=== PATIENT | female | born 1975 | race Caucasian/White ===

== ENCOUNTER 2018-04-19 18:23 | Emergency (ER) | payer MEDICARE, MEDICAID ==
[~2018-04-19] VITALS: Ht 165.1 cm; Wt 68.0 kg
[~2018-04-19 18:23] MED LIST: AGM875T PO; ALBU17AE23 IH; ASP81TEC PO; ATOR10TA PO; BENZ200C25 PO; CEFD300C3 PO; CHLS4PK GT; CLCX200C PO; CYCL10TA9 PO; DEXL60CA5 PO; EZET10TA5 PO; FLT05NA16 NSEACH; KETO-22 PO; LEVO500T69 PO; METH4TAB PO; MTX2.5T PO; OXYC-471; PRD20T PO; RT-ALBUINH; SMV20T PO; THYR90TA; TRAM50TA2 PO; [UNRECOGNIZED DRUG - CODE] PO
[2018-04-19 18:42] VITALS: BP 112/85
[2018-04-19] MEDS ORDERED: PRD20T PO (18:54)
[2018-04-19] MEDS ORDERED: OXYC1TAB87 PO (18:54)
--- NOTE | 2018-04-19 18:54 | ED Upper Extremity ---
General Chief Complaint: Upper Extremity Stated Complaint: R SHOULDER BLADE PAIN Nursing Triage Note: pt presents to ed with complaints of r shoulder pain x 1 week. reports pain radiates down r arm. Pt states about a month ago she fell and over stretched that arm trying to hold onto railing. Nursing Sepsis Screen: No Definite Risk Source: patient Exam Limitations: no limitations History of Present Illness Date Seen by Provider: Apr 19, 2018 Time Seen by Provider: 18:51 Initial Comments To ER with pain around the scapula on the right side times one week. Radiates down the arm all the way to the fingers. She states that in March 2017 she fell. She then had a recurrence of pain in August and recurrence of pain one week ago. She cannot recall any recent precipitating injury such as another fall. Onset: last week Severity: moderate Pain/Injury Location: right shoulder Method of Injury: fell Modifying Factors: Worse With Movement Allergies and Home Medications Allergies Coded Allergies: Hydrocodone (Unverified Allergy, Mild, 08/03/08) morphine (Unverified Allergy, Mild, 08/03/08) Home Medications Aspirin 81 Mg Tabec, 81 MG PO DAILY, (Reported) Atorvastatin Calcium 10 Mg Tablet, 20 MG PO DAILY, (Reported) Cefdinir 300 Mg Capsule, 300 MG PO BID Prescribed by: KAPIL DOMINGO on 11/23/15826 Celecoxib 200 Mg Capsule, 1 EACH PO BID, (Reported) Dexlansoprazole 60 Mg , 60 MG PO DAILY, (Reported) Methotrexate 2.5 Mg Tab, 1 EACH PO WEEK, (Reported) Prednisone 20 Mg Tab, 40 MG PO DAILY Prescribed by: KAPIL DOMINGO on 11/23/15826 Patient Home Medication List Home Medication List Reviewed: Yes Review of Systems Constitutional: see HPI EENTM: see HPI Respiratory: no symptoms reported Cardiovascular: no symptoms reported Genitourinary: no symptoms reported Musculoskeletal: see HPI Skin: no symptoms reported Psychiatric/Neurological: No Symptoms Reported Past Jskafet-Nyxajc-Pidtqz Hx Patient Social History Alcohol Use: Denies Use Recreational Drug Use: No Smoking Status: Current Everyday Smoker Type Used: Cigarettes Recent Foreign Travel: No Contact w/Someone Who Travel: No Recent Infectious Disease Expo: No Recent Hopitalizations: No Physical Abuse: No Sexual Abuse: No Mistreated: No Fear: No Seasonal Allergies Seasonal Allergies: Yes Past Medical History Surgeries: Yes Appendectomy, Breast, Gallbladder, Hysterectomy, Oophorectomy, Tonsillectomy Respiratory: No ("RA" IN LUNGS) Cardiac: Yes High Cholesterol Neurological: No Reproductive Disorders: No 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 oz. 68.950751ac; BMI Method:Stated General Appearance: WD/WN, no apparent distress HEENT: PERRL/EOMI, normal ENT inspection Neck: non-tender, full range of motion Respiratory: no respiratory distress, no accessory muscle use Shoulder: normal inspection, soft tissue tenderness (periscapular tenderness to palpation but no ecchymosis or rash) Elbow/Forearm: normal inspection, non-tender Wrist: Yes normal inspection, Yes non-tender Hand: normal inspection, non-tender Neurologic/Psychiatric: alert, normal mood/affect, oriented x 3 Skin: normal color, warm/dry Progress/Results/Core Measures Results/Orders Vital Signs/I&O 04/19/18 18:42 Temp 98.8 Pulse 95 Resp 20 B/P (MAP) 112/85 (94) Pulse Ox 99 Blood Pressure Mean: 94 Departure Impression Primary Impression: Shoulder pain Qualified Codes: M25.511 - Pain in right shoulder Disposition: 01 HOME, SELF-CARE Condition: Stable Departure-Patient Inst. Decision time for Depature: 18:52 Referrals: GAUTAM SAAVEDRA MD (PCP/Family) Primary Care Physician Patient Instructions: Shoulder Pain (DC) Add. Discharge Instructions: 1. Follow-up with Dr. Saavedra next week to discuss imaging studies to further evaluate the cause of your pain such as perhaps an MRI of the shoulder or the neck. In the meantime pain medication as directed. Return to ER for any concerns. All discharge instructions reviewed with patient and/or family. Voiced understanding. Scripts Oxycodone HCl/Acetaminophen (Percocet 5-325 mg Tablet) 1 Each Tablet 1 TAB PO Q4H for PAIN-MODERATE MDD 6, #14 TAB Do not fill unless prednisone is also filled Prov: TAYA CHENEY APRN 04/19/18 Prednisone (Prednisone) 20 Mg Tab 40 MG PO DAILY, #8 TAB Prov: TAYA CHENEY APRN 04/19/18 TAYA CHENEY APRN Apr 19, 2018 18:54
[2018-04-19] MEDS ORDERED: KETOROLAC 60 MG/2 ML VIAL IM ONE (19:00)
[2018-04-19] MEDS ORDERED: ORPHENADRINE 60 MG/2 ML (NORFLEX) AMP IM ONE (19:00)
--- OUTSIDE RECORDS SUMMARY | 2018-04-19 19:16 | XMS REPORT | Continuity of Care Document ---
Author Author [facility] Organization [facility] Address Unknown Phone Unavailable Allergies Active Description Code Type Severity Reaction Onset Reported/Identified Relationship to Patient Clinical Status Yes hydrocodone [id number] Drug Allergy Mild N/A 08/03/2008 Yes morphine [id number] Drug Allergy Mild N/A 08/03/2008 Medications There is no data. Problems Date Dx Coded Attending Type Code Diagnosis Diagnosed By 01/30/2011 Ot 784.0 01/30/2011 Ot 786.50 01/30/2011 Ot 786.52 02/19/2014 JAMES CAVAZOS MD Ot 724.2 02/19/2014 JAMES CAVAZOS MD Ot 782.0 06/17/2014 Ot 244.9 06/17/2014 Ot 272.4 08/31/2014 Ot 244.9 08/31/2014 Ot 272.4 02/17/2015 QUENTIN OQUENDO, GAUTAM R Ot E78.5 02/17/2015 QUENTIN OQUENDO, GAUTAM R Ot J45.909 02/17/2015 QUENTIN OQUENDO, GAUTAM R Ot K21.9 02/17/2015 QUENTIN OQUENDO, GAUTAM R Ot M06.9 02/28/2015 QUENTIN OQUENDO, GAUTAM R Ot E78.5 02/28/2015 QUENTIN OQUENDO, GAUTAM R Ot J45.909 02/28/2015 QUENTIN OQUENDO, GAUTAM R Ot K21.9 02/28/2015 QUENTIN OQUENDO, GAUTAM R Ot M06.9 03/29/2015 QUENTIN OQUENDO, GAUTAM R Ot S39.92XA 03/29/2015 QUENTIN OQUENDO, GAUTAM R Ot W19.XXXA 03/29/2015 QUENTIN OQUENDO, GAUTAM R Ot Y99.8 11/23/2015 Ot F17.210 NICOTINE DEPENDENCE, CIGARETTES, UNCOMPL 11/23/2015 Ot J01.90 ACUTE SINUSITIS, UNSPECIFIED 11/23/2015 Ot J02.9 ACUTE PHARYNGITIS, UNSPECIFIED 11/23/2015 Ot M06.9 RHEUMATOID ARTHRITIS, UNSPECIFIED 11/23/2015 Ot Z79.82 PRISON ( CURRENT) USE OF ASPIRIN 11/23/2015 Ot Z79.899 OTHER PRISON (CURRENT) DRUG THERAPY 11/25/2015 Ot F17.210 NICOTINE DEPENDENCE, CIGARETTES, UNCOMPL 11/25/2015 Ot J01.90 ACUTE SINUSITIS, UNSPECIFIED 11/25/2015 Ot J02.9 ACUTE PHARYNGITIS, UNSPECIFIED 11/25/2015 Ot M06.9 RHEUMATOID ARTHRITIS, UNSPECIFIED 11/25/2015 Ot Z79.82 PRISON ( CURRENT) USE OF ASPIRIN 11/25/2015 Ot 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 Results There is no data. Encounters ACCT No. Visit Date/Time Discharge Status Pt. Type Provider Facility Loc./Unit Complaint [id number] 03/07/2015 10:14:00 03/07/2015 23:59:59 CLS Outpatient GAUTAM SAAVEDRA MD [facility] RAD [id number] 01/28/2015 09:26:00 01/28/2015 23:59:59 CLS Outpatient GAUTAM SAAVEDRA MD [facility] LAB [id number] 02/19/2014 13:32:00 02/19/2014 16:12:00 DIS Emergency JAMES CAVAZOS MD [facility] ER [id number] 10/28/2013 15:09:00 10/28/2013 23:59:59 CLS Outpatient [id number] 05/21/2013 11:59:00 08/19/2013 00:01:00 DIS Outpatient [id number] 07/02/2013 11:07:00 07/02/2013 23:59:59 CLS Outpatient [id number] 06/23/2013 09:51:00 06/23/2013 11:52:00 DIS Emergency [id number] 06/17/2013 13:02:00 06/17/2013 23:59:59 CLS Outpatient [id number] 05/21/2013 13:51:00 05/21/2013 23:59:59 CLS Outpatient [id number] 05/02/2013 11:33:00 05/02/2013 14:27:00 DIS Emergency [id number] 03/04/2013 09:19:00 03/04/2013 23:59:59 CLS Outpatient [id number] 01/29/2013 14:36:00 01/29/2013 23:59:59 CLS Outpatient [id number] 01/26/2013 09:41:00 01/26/2013 13:00:00 DIS Emergency [id number] 12/30/2012 11:27:00 12/30/2012 23:59:59 CLS Outpatient [id number] 12/16/2012 10:08:00 12/16/2012 23:59:59 CLS Outpatient [id number] 12/12/2012 12:32:00 12/12/2012 13:48:00 DIS Emergency [id number] 11/23/2015 08:06:00 Document Registration [id number] 05/25/2014 08:36:00 Document Registration [id number] 01/30/2011 10:44:00 Document Registration
== END 2018-04-19 19:33 | disposition home or self-care (01) ==
LOC: ER 18:23 → EDUNIT# 18:23 → ER 19:33
DX: M25.511 Pain in right shoulder (principal); E78.00 Pure hypercholesterolemia, unspecified; M06.9 Rheumatoid arthritis, unspecified; F17.210 Nicotine dependence, cigarettes, uncomplicated; Z90.49 Acquired absence of other specified parts of digestive tract; Z90.710 Acquired absence of both cervix and uterus; Z90.89 Acquired absence of other organs; Z98.890 Other specified postprocedural states; Z88.5 Allergy status to narcotic agent; Z79.82 Long term (current) use of aspirin; Z95.2 Presence of prosthetic heart valve
CPT/HCPCS: 99282

== ENCOUNTER → 2018-05-26 | Outpatient (CLI) | payer MEDICARE, MEDICAID ==
[~2018-05-26] MED LIST changes: +OXYC1TAB87 PO
[2018-05-26 10:40] LABS: BASOPHILS % (AUTO) 0 % (0-10); EOSINOPHILS # (AUTO) 0.1 10^3/uL (0.0-0.3); EOSINOPHILS % (AUTO) 2 % (0-10); HEMATOCRIT 47 % (35-52); HEMOGLOBIN 15.1 G/DL (11.5-16.0); LYMPHOCYTES # (AUTO) 1.2 X 10^3 (1.0-4.0); LYMPHOCYTES % (AUTO) 15 % (12-44); MEAN CORPUSCULAR HEMOGLOBIN 30 PG (25-34); MEAN CORPUSCULAR HGB CONC 33 G/DL (32-36); MEAN CORPUSCULAR VOLUME 91 FL (80-99); MEAN PLATELET VOLUME 10.1 FL (7.4-10.4); MONOCYTES # (AUTO) 0.6 X 10^3 (0.0-1.0); MONOCYTES % (AUTO) 7 % (0-12); NEUTROPHILS # (AUTO) 6.3 X 10^3 (1.8-7.8); NEUTROPHILS % (AUTO) 76 % (42-75); PLATELET COUNT 200 10^3/uL (130-400); RED CELL DISTRIBUTION WIDTH 14.2 % (10.0-14.5); WHITE BLOOD COUNT 8.2 10^3/uL (4.3-11.0)
[2018-05-26 11:07] LABS: ALANINE AMINOTRANSFERASE 11 U/L (0-55); ALBUMIN 4.1 GM/DL (3.2-4.5); ALKALINE PHOSPHATASE 110 U/L (40-136); BILIRUBIN,TOTAL 0.3 MG/DL (0.1-1.0); BUN/CREATININE RATIO 14; CALCIUM 9.3 MG/DL (8.5-10.1); CARBON DIOXIDE 27 MMOL/L (21-32); CHLORIDE 105 MMOL/L (98-107); CHOLESTEROL 181 MG/DL (< 200); CREATININE SERUM 0.77 MG/DL (0.60-1.30); GFR ESTIMATED > 60; GLUCOSE 84 MG/DL (70-105); HDL CHOLESTEROL 47 MG/DL (40-60); POTASSIUM 4.2 MMOL/L (3.6-5.0); SODIUM 142 MMOL/L (135-145); TOTAL PROTEIN 6.5 GM/DL (6.4-8.2); TRIGLYCERIDES 144 MG/DL (<150); VLDL CHOLESTEROL 29 MG/DL (5-40)
--- NOTE | 2018-05-26 19:01 | Diagnostic Imaging Report ---
INDICATION: Loss of range of motion and right shoulder pain. TIME OF EXAMINATION: 10:21 AM. FINDINGS: Two views of the right shoulder demonstrate normal glenohumeral and acromioclavicular alignment. The acromiohumeral space is normal. No fracture or dislocation is seen. IMPRESSION: No acute bony abnormality is detected. Dictated by: Dictated on workstation # [id number]
== END ==
LOC: RAD 10:06
PROVIDERS: ATTEND Family Medicine
DX: G89.29 Other chronic pain (principal); M25.511 Pain in right shoulder; E03.9 Hypothyroidism, unspecified; E78.5 Hyperlipidemia, unspecified
CPT/HCPCS: 36415; 73030; 80053; 80061; 82672; 84443; 85025

== ENCOUNTER → 2018-06-03 | Outpatient (CLI) | payer MEDICARE, MEDICAID ==
--- NOTE | 2018-06-03 18:50 | Diagnostic Imaging Report ---
INDICATION: Routine screening. COMPARISON is made with prior mammogram from 11/09/2008 and 03/20/2007. 2-D and 3-D bilateral screening mammography was performed with CAD. FINDINGS: Scattered fibronodular densities are identified bilaterally. The right breast is unremarkable. There is a nodular density in the central left breast at the nipple line approximately 4 cm from the nipple. Additional views are recommended. No other mass is seen. No suspicious microcalcifications are identified. Axillae are unremarkable. IMPRESSION: BI-RADS 0. Nodular density in the central left retroareolar breast. Further evaluation with additional views and ultrasound are recommended. ACR BI-RADS Category 0: Incomplete. (Needs additional imaging evaluation). Result letter will be mailed to the patient. Note: At least 10% of breast cancer is not imaged by mammography. Dictated by: Dictated on workstation # [id number]
== END ==
LOC: RAD 09:06
PROVIDERS: ATTEND Family Medicine
DX: Z12.31 Encounter for screening mammogram for malignant neoplasm of breast (principal); R92.8 Other abnormal and inconclusive findings on diagnostic imaging of breast
CPT/HCPCS: 77067

== ENCOUNTER 2018-07-06 20:07 | Emergency (ER) | payer MEDICARE, MEDICAID ==
[~2018-07-06] VITALS: Ht 165.1 cm; Wt 68.0 kg
[2018-07-06 22:03] LABS: BASOPHILS % (AUTO) 1 % (0-10); EOSINOPHILS # (AUTO) 0.2 10^3/uL (0.0-0.3); EOSINOPHILS % (AUTO) 3 % (0-10); HEMATOCRIT 45 % (35-52); HEMOGLOBIN 14.9 G/DL (11.5-16.0); LYMPHOCYTES % (AUTO) 30 % (12-44); MEAN CORPUSCULAR HEMOGLOBIN 30 PG (25-34); MEAN CORPUSCULAR HGB CONC 33 G/DL (32-36); MEAN CORPUSCULAR VOLUME 92 FL (80-99); MEAN PLATELET VOLUME 10.9 FL (7.4-10.4); MONOCYTES # (AUTO) 0.7 X 10^3 (0.0-1.0); MONOCYTES % (AUTO) 10 % (0-12); NEUTROPHILS # (AUTO) 3.7 X 10^3 (1.8-7.8); NEUTROPHILS % (AUTO) 56 % (42-75); PLATELET COUNT 235 10^3/uL (130-400); RED CELL DISTRIBUTION WIDTH 14.6 % (10.0-14.5); WHITE BLOOD COUNT 6.6 10^3/uL (4.3-11.0)
[2018-07-06 22:03] LABS: BILIRUBIN,URINE NEGATIVE (NEGATIVE); CLARITY,URINE SLIGHTLY CLOUDY; COLOR,URINE YELLOW; GLUCOSE, URINE (UA) NEGATIVE (NEGATIVE); KETONES,URINE NEGATIVE (NEGATIVE); LEUKOCYTE ESTERASE ,URINE 1+ (NEGATIVE); NITRITE,URINE NEGATIVE (NEGATIVE); PH,URINE 6 (5-9); PROTEIN,URINE NEGATIVE (NEGATIVE); UROBILINOGEN,URINE NORMAL (NORMAL)
[2018-07-06 22:10] LABS: BACTERIA,URINE TRACE /HPF; WBC,URINE 0-2 /HPF; YEAST,URINE FEW /HPF
[2018-07-06] MEDS ORDERED: NS IV 1000 ML 1,000 ML IV STA (22:10)
[2018-07-06] MEDS ORDERED: KETOROLAC 30 MG/ML VIAL IVP STA (22:10)
[2018-07-06 22:16] LABS: ALANINE AMINOTRANSFERASE 17 U/L (0-55); ALBUMIN 4.1 GM/DL (3.2-4.5); ALKALINE PHOSPHATASE 119 U/L (40-136); BILIRUBIN,TOTAL 0.2 MG/DL (0.1-1.0); BUN/CREATININE RATIO 16; CALCIUM 9.3 MG/DL (8.5-10.1); CARBON DIOXIDE 23 MMOL/L (21-32); CHLORIDE 107 MMOL/L (98-107); CREATININE SERUM 0.77 MG/DL (0.60-1.30); GFR ESTIMATED > 60; GLUCOSE 91 MG/DL (70-105); LIPASE 53 U/L (8-78); POTASSIUM 3.6 MMOL/L (3.6-5.0); SODIUM 143 MMOL/L (135-145); TOTAL PROTEIN 6.6 GM/DL (6.4-8.2)
[2018-07-06] MEDS ORDERED: fentaNYL INJECTION 100 MCG/2 ML AMP IVP STA (22:26)
[2018-07-06] MEDS ORDERED: FAMOTIDINE 20MG/2ML IV (PEPCID) IV STA (22:26)
--- NOTE | 2018-07-06 22:49 | ED Abdominal Pain ---
General Chief Complaint: Abdominal/GI Problems Stated Complaint: ABD PAIN Nursing Triage Note: PT AMB TO ROOM #6 GARDING ABD. A&OX4. C/O UPPER RT ABD DISCOMFORT AND BLOATING. 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 DENIES NAUSEA OR VOMITING. DENIES FEVER OR CHILLS. Sepsis Screen: No Definite Risk Source of Information: Patient Exam Limitations: No Limitations History of Present Illness Date Seen by Provider: Jul 06, 2018 Time Seen by Provider: 22:10 Initial Comments Here with report of acute onset of right upper quadrant abdominal pain that occurred at about 7 PM tonight when she lit a cigarette. She had eaten at 5 PM and was done about 5:15 or so. Doesn't normally have problems after eating. She had her gallbladder removed in 1996. 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 Tonight reports the pain as an ache and worse with movement. She was concerned about gallbladder problems. No fever or chills. No vomiting or diarrhea. Had similar episode in March and had CT scan at that time at outside facility. She reports the CT scan did not show any concerning findings. Does have history of rheumatoid arthritis and is on methotrexate. Timing/Duration: 1-3 Hours Severity/Quality: Moderate Location: RUQ Radiation: No Radiation Modifying Factors: Improves With Resting Associated Symptoms: No Back Pain, No Chest Pain, No Fever/Chills, No Nausea/ Vomiting; Shortness of Air; No Weakness Allergies and Home Medications Allergies Coded Allergies: Hydrocodone (Unverified Allergy, Mild, 08/03/08) morphine (Unverified Allergy, Mild, 08/03/08) Home Medications Aspirin 81 Mg Tabec, 81 MG PO DAILY, (Reported) Atorvastatin Calcium 10 Mg Tablet, 20 MG PO DAILY, (Reported) Cefdinir 300 Mg Capsule, 300 MG PO BID Prescribed by: KAPIL DOMINGO on 11/23/15 0815 Celecoxib 200 Mg Capsule, 1 EACH PO BID, (Reported) Dexlansoprazole 60 Mg , 60 MG PO DAILY, (Reported) Methotrexate 2.5 Mg Tab, 1 EACH PO WEEK, (Reported) Oxycodone HCl/Acetaminophen 1 Each Tablet, 1 TAB PO Q4H Do not fill unless prednisone is also filled Prescribed by: TAYA CHENEY on 04/19/181853 Prednisone 20 Mg Tab, 40 MG PO DAILY Prescribed by: KAPIL DOMINGO on 11/23/15 0827 Prednisone 20 Mg Tab, 40 MG PO DAILY Prescribed by: TAYA CHENEY on 04/19/181853 Patient Home Medication List Home Medication List Reviewed: Yes Review of Systems Review of Systems Constitutional: see HPI; No chills, No fever EENTM: No Symptoms Reported Respiratory: No Symptoms Reported Cardiovascular: Denies Chest Pain Gastrointestinal: Abdominal Pain; Denies Constipated, Denies Diarrhea, Denies Nausea, Denies Vomiting Genitourinary: No Symptoms Reported Musculoskeletal: no symptoms reported Psychiatric/Neurological: No Symptoms Reported Past Yhglank-Vatioo-Oynwid Hx Past Med/Social Hx: Reviewed Nursing Past Med/Soc Hx Patient Social History Alcohol Use: Denies Use Recreational Drug Use: No Smoking Status: Current Everyday Smoker Type Used: Cigarettes Recent Foreign Travel: No Contact w/Someone Who Travel: No Recent Infectious Disease Expo: No Recent Hopitalizations: No Seasonal Allergies Seasonal Allergies: Yes Past Medical History Surgeries: Yes Appendectomy, Breast, Gallbladder, Hysterectomy, Oophorectomy, Tonsillectomy Respiratory: No ("RA" IN LUNGS) Cardiac: Yes High Cholesterol Neurological: No Reproductive Disorders: No 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 oz. 68.522624kl; BMI Method:Stated General Appearance: WD/WN, no apparent distress HEENT: PERRL/EOMI, pharynx normal Neck: full range of motion, supple Respiratory: lungs clear, normal breath sounds Cardiovascular: regular rate, rhythm, no murmur Peripheral Pulses: 2+ Dorsalis Pedis (R), 2+ Left Dors-Pedis (L), 2+ Radial Pulses (R), 2+ Radial Pulses (L) Gastrointestinal: soft; No guarding, No rebound; tenderness (right upper quadrant) Extremities: non-tender, normal inspection Back: normal inspection, no CVA tenderness, no vertebral tenderness Neurologic/Psychiatric: alert, oriented x 3 Skin: normal color, warm/dry Progress/Results/Core Measures Results/Orders Lab Results Laboratory Tests Test 07/06/18 20:40 07/06/18 20:55 Range/Units White Blood Count 6.6 4.3-11.0 10^3/uL Red Blood Count 4.92 4.35-5.85 10^6/uL Hemoglobin 14.9 11.5-16.0 G/DL Hematocrit 45 35-52 % Mean Corpuscular Volume 92 80-99 FL Mean Corpuscular Hemoglobin 30 25-34 PG Mean Corpuscular Hemoglobin Concent 33 32-36 G/DL Red Cell Distribution Width 14.6 H 10.0-14.5 % Platelet Count 235 130-400 10^3/uL Mean Platelet Volume 10.9 H 7.4-10.4 FL Neutrophils (%) (Auto) 56 42-75 % Lymphocytes (%) (Auto) 30 12-44 % Monocytes (%) (Auto) 10 0-12 % Eosinophils (%) (Auto) 3 0-10 % Basophils (%) (Auto) 1 0-10 % Neutrophils # (Auto) 3.7 1.8-7.8 X 10^3 Lymphocytes # (Auto) 2.0 1.0-4.0 X 10^3 Monocytes # (Auto) 0.7 0.0-1.0 X 10^3 Eosinophils # (Auto) 0.2 0.0-0.3 10^3/uL Basophils # (Auto) 0.0 0.0-0.1 10^3/uL Sodium Level 143 135-145 MMOL/L Potassium Level 3.6 3.6-5.0 MMOL/L Chloride Level 107 98-107 MMOL/L Carbon Dioxide Level 23 21-32 MMOL/L Anion Gap 13 5-14 MMOL/L Blood Urea Nitrogen 12 7-18 MG/DL Creatinine 0.77 0.60-1.30 MG/DL Estimat Glomerular Filtration Rate > 60 BUN/Creatinine Ratio 16 Glucose Level 91 70-105 MG/DL Calcium Level 9.3 8.5-10.1 MG/DL Corrected Calcium 9.2 8.5-10.1 MG/DL Total Bilirubin 0.2 0.1-1.0 MG/DL Aspartate Amino Transf (AST/SGOT) 18 5-34 U/L Alanine Aminotransferase (ALT/SGPT) 17 0-55 U/L Alkaline Phosphatase 119 40-136 U/L Total Protein 6.6 6.4-8.2 GM/DL Albumin 4.1 3.2-4.5 GM/DL Lipase 53 8-78 U/L Urine Color YELLOW Urine Clarity SLIGHTLY CLOUDY Urine pH 6 5-9 Urine Specific [place] 1.015 L 1.016-1.022 Urine Protein NEGATIVE NEGATIVE Urine Glucose (UA) NEGATIVE NEGATIVE Urine Ketones NEGATIVE NEGATIVE Urine Nitrite NEGATIVE NEGATIVE Urine Bilirubin NEGATIVE NEGATIVE Urine Urobilinogen NORMAL NORMAL MG/DL Urine Leukocyte Esterase 1+ H NEGATIVE Urine RBC (Auto) NEGATIVE NEGATIVE Urine RBC NONE /HPF Urine WBC 0-2 /HPF Urine Squamous Epithelial Cells 10-25 H /HPF Urine Crystals NONE /LPF Urine Bacteria TRACE /HPF Urine Casts NONE /LPF Urine Mucus SMALL H /LPF Urine Yeast FEW H /HPF Urine Culture Indicated NO My Orders Orders - KAPIL DOMINGO MD Ns Iv 1000 Ml (Sodium Chloride 0.9%) (07/06/18 22:10) Ketorolac Injection (Toradol Injection) (07/06/18 22:10) Fentanyl Injection (Sublimaze Injection (07/06/18 22:26) Famotidine Injection (Pepcid Injection) (07/06/18 22:26) Vital Signs/I&O 07/06/18 20:40 Temp 97.1 Pulse 79 Resp 16 B/P (MAP) 115/77 (90) Pulse Ox 97 O2 Delivery Room Air Blood Pressure Mean: 90 Progress Progress Note : Progress Note Seen and evaluated. IV, labs, normal saline 1 L bolus, Toradol 30 mg IV ordered. Pain continued. Fentanyl 50 g IV ordered as well as Pepcid 20 mg IV. Monitor patient. 2345: Patient did not tolerate fentanyl well. We will watch her for a bit. She is doing better but got a significant flushed feeling and started crying and states that it's making her feel terrible. She is doing better at this point. Monitor patient. 0010: Overall improved and resolved. She feels much better. She will need follow-up with her doctor and with a surgeon for further evaluation including upper endoscopy to evaluate for her stomach. I will give her Dr. Guillory's information and she will call in the morning. I will send a copy of the chart to her primary doctor as well as Dr. Guillory. Discharged home with return precautions. Patient verbalize understanding instructions and agreement with plan. Departure Impression Primary Impression: Right upper quadrant abdominal pain Disposition: HOME, SELF-CARE Condition: Improved Departure-Patient Inst. Decision time for Depature: 00:13 Referrals: SUE GUILLORY FLOYD R MD (PCP/Family) Primary Care Physician Patient Instructions: Acute Abdomen (Belly Pain), Adult (DC) Add. Discharge Instructions: All discharge instructions reviewed with patient and/or family. Voiced understanding. Call Dr. Guillory's office in the morning for recheck and further evaluation related to the abdominal pain. You likely need upper endoscopy (scope). Return for worsening, fever, vomiting, weakness, breathing problems or other concerns as needed. Continue home medications as previously prescribed. Eat a light diet for the next few days and then advance as tolerated. Copy Copies To 1: GAUTAM SAAVEDRA MD Copies To 2: SUE GUILLORY TIMOTHY D MD Jul 06, 2018 22:49
[2018-07-07 00:20] VITALS: BP 122/87
== END 2018-07-07 00:21 | disposition home or self-care (01) ==
LOC: EDUNIT# 20:07 → ER 20:08
DX: R10.11 Right upper quadrant pain (principal); E78.00 Pure hypercholesterolemia, unspecified; M06.9 Rheumatoid arthritis, unspecified; F17.210 Nicotine dependence, cigarettes, uncomplicated; Z88.5 Allergy status to narcotic agent; Z90.49 Acquired absence of other specified parts of digestive tract; Z90.710 Acquired absence of both cervix and uterus; Z90.89 Acquired absence of other organs; Z79.82 Long term (current) use of aspirin; Z79.52 Long term (current) use of systemic steroids
CPT/HCPCS: 36415; 80053; 81000; 83690; 85025

== ENCOUNTER 2018-07-17 05:40 | Outpatient (CLI) | payer MEDICARE, MEDICAID ==
[~2018-07-17] VITALS: Ht 165.1 cm; Wt 68.0 kg
[2018-07-17] MEDS ORDERED: CELE-63 PO (11:25)
[2018-07-17] MEDS ORDERED: ESTR1TAB24 PO (11:25)
[2018-07-17] MEDS ORDERED: ASPI-999 PO (11:25)
[2018-07-17] MEDS ORDERED: METH2.5T PO (11:25)
[2018-07-17] MEDS ORDERED: ALBU18HF2 IH (11:25)
[2018-07-17] MEDS ORDERED: DEXL60CA PO (11:25)
[2018-07-17] MEDS ORDERED: ATOR20TA66 PO (11:25)
== END 2018-07-17 12:03 | disposition home or self-care (01) ==
LOC: PREOP 05:40
PROVIDERS: ATTEND Surgery
DX: Z01.818 Encounter for other preprocedural examination (principal)

== ENCOUNTER 2018-07-21 09:47 | Day surgery (SDC) | payer MEDICARE, MEDICAID ==
[~2018-07-21] VITALS: Ht 165.1 cm; Wt 68.0 kg
[~2018-07-21 09:47] MED LIST changes: +ALBU18HF2 IH; +ASPI-999 PO; +ATOR20TA66 PO; +CELE-63 PO; +DEXL60CA PO; +ESTR1TAB24 PO; +METH2.5T PO
[2018-07-21 09:55] VITALS: BP 110/77
[2018-07-21] MEDS ORDERED: LACTATED RINGERS 1,000 ML IV STA (10:10)
[2018-07-21] MEDS ORDERED: HURRICAINE EXT TUBE (BENZOCAINE) XX PRN (10:15)
[2018-07-21] MEDS ORDERED: LACTATED RINGERS 1,000 ML IV ONE (10:22)
--- NOTE | 2018-07-21 10:26 | Progress Note-Pre Operative ---
Pre-Operative Progress Note H&P Reviewed The H&P was reviewed, patient examined and no changes noted. Time Seen by Provider: 10:23 Date H&P Reviewed: July 21, 2018 Time H&P Reviewed: 10:24 Pre-Operative Diagnosis: Epigastric pain MARGAUX JUAN DO July 21, 2018 10:26
[2018-07-21] MEDS ORDERED: MIDAZOLAM 2 MG/2 ML (VERSED) VIAL ONE (10:39)
[2018-07-21] MEDS ORDERED: proPOfol 200 MG/20 ML (DIPRIVAN) VIAL IV ONE (10:39)
--- NOTE | 2018-07-21 11:00 | Progress Note-Post Operative ---
Post-Operative Progess Note Surgeon (s)/Wheel Inspector (s) Surgeon MARGAUX JUAN DO Wheel Inspector: none Pre-Operative Diagnosis Epigastric pain Post-Operative Diagnosis Gastritis Hiatal Hernia Procedure & Operative Findings Date of Procedure 07/21/18 Procedure Performed/Findings EGD with bx Anesthesia Type IV sedation by TRANSFUSION NURSE Estimated Blood Loss Estimated blood loss (mL): scant Specimens/Packing Specimens Removed Antral bx Body of stomach bx GE jxn bx MARGAUX JUAN DO July 21, 2018 11:00
--- NOTE | 2018-07-21 11:03 | Endoscopy Discharge Instruct ---
Endo Procedure/Findings Findings 1.: Gastritis 2.: Hiatal Hernia Discharge Instructions - Activity: You might feel a little sleepy until tomorrow. This is due to the medicine you received to relax you. Until tomorrow, you should: NOT drive a car, operate machinery or power tools. NOT drink any alcoholic beverages. NOT make any important decisions or sign importortant papers. Do not return to work until tomorrow, unless otherwise instructed. Resume previous activities tomorrow. Diet: Start by taking liquids. If you tolerate liquids, advance to solid food. make an appointment for one week Instructions: 1.: EGD in 1 year Notify Physician - If you experience excessive bleeding, unusual abdominal pain, fever, or chest pain, contact your doctor immediately. Follow-Up: - I have received and understand the above instructions and will call my doctor if I have any further questions. Patient Signature Date Nurse Signature Other (Relationship) MARGAUX JUAN DO July 21, 2018 11:03
[2018-07-21 11:30] VITALS: BP 98/64
[2018-07-21 11:50] VITALS: BP 103/72
--- NOTE | 2018-07-21 12:10 | Anesthesia-General Post-Op ---
MAC Patient Condition Mental Status/LOC: Same as Preop Cardiovascular: Satisfactory Nausea/Vomiting: Absent Respiratory: Satisfactory Pain: Controlled Complications: Absent Post Op Complications Complications None Follow Up Care/Instructions Patient Instructions None needed. Anesthesiology Discharge Order Discharge Order Patient is doing well, no complaints, stable vital signs, no apparent adverse anesthesia problems. No complications reported per nursing. DELBERT LORENZO CRNA July 21, 2018 12:10
[2018-07-21 12:24] VITALS: BP 103/72
--- OUTSIDE RECORDS SUMMARY | 2018-07-21 12:47 | XMS REPORT | Continuity of Care Document ---
Author Organization Unknown Address Unknown Allergies Active Description Code Type Severity Reaction Onset Reported/Identified Relationship to Patient Clinical Status Yes hydrocodone [id number] Drug Allergy Mild N/A 08/03/2008 Yes morphine [id number] Drug Allergy Mild N/A 08/03/2008 Yes fentanyl [id number] Drug Allergy Unknown N/A 07/07/2018 Medications There is no data. Problems Date Dx Coded Attending Type Code Diagnosis Diagnosed By 01/30/2011 Ot 784.0 01/30/2011 Ot 786.50 01/30/2011 Ot 786.52 12/12/2012 TRACY GREENWOOD Ot 490 BRONCHITIS NOS 12/12/2012 TRACY GREENWOOD Ot 786.2 COUGH 01/26/2013 TRACY GREENWOOD Ot 844.9 SPRAIN OF KNEE LEG NOS 01/26/2013 TRACY GREENWOOD Ot 845.00 SPRAIN OF ANKLE NOS 01/26/2013 TRACY GREENWOOD Ot 959.7 LOWER LEG INJURY NOS 01/26/2013 TRACY GREENWOOD Ot E000.8 OTHER EXTERNAL CAUSE STATUS 01/26/2013 TRACY GREENWOOD Ot E883.9 FALL INTO OTHER HOLE 05/02/2013 JAMES CAVAZOS MD Ot 780.79 OTH MALAISE FATIGUE 05/02/2013 JAMES CAVAZOS MD Ot 787.91 DIARRHEA 05/02/2013 JAMES CAVAZOS MD Ot V58.69 OTH MED,LT,CURRENT USE 06/23/2013 ROWAN PENG DOA Mandi Ot 338.29 OTHER CHRONIC PAIN 06/23/2013 YOANNA PENG DO Ot 719.45 JOINT PAIN-PELVIS 06/23/2013 YOANNA PENG DO K Ot 843.9 SPRAIN HIP THIGH NOS 06/23/2013 YOANNA PENG DO Ot E000.8 OTHER EXTERNAL CAUSE STATUS 06/23/2013 YOANNA PENG DO Ot E849.0 ACCIDENT IN HOME 06/23/2013 YOANNA PENG DO Ot E927.0 OVEREXERTION FROM SUDDEN STRENUOUS MOVEM 08/19/2013 QUENTIN OQUENDO, GAUTAM R Ot 787.91 DIARRHEA 02/19/2014 MACY OQUENDO, JAMES Raymond Ot 724.2 LUMBAGO 02/19/2014 MACY OQUENDO, JAMES Raymond Ot 782.0 SKIN SENSATION DISTURB 06/17/2014 Ot 244.9 06/17/2014 Ot 272.4 08/31/2014 [...] M06.9 RHEUMATOID ARTHRITIS, UNSPECIFIED 11/23/2015 Ot Z79.82 [facility] ( CURRENT) USE OF ASPIRIN 11/23/2015 Ot Z79.899 OTHER [facility] (CURRENT) DRUG THERAPY 11/25/2015 Ot F17.210 NICOTINE DEPENDENCE, CIGARETTES, UNCOMPL 11/25/2015 Ot J01.90 ACUTE SINUSITIS, UNSPECIFIED 11/25/2015 Ot J02.9 ACUTE PHARYNGITIS, UNSPECIFIED 11/25/2015 Ot M06.9 RHEUMATOID ARTHRITIS, UNSPECIFIED 11/25/2015 Ot Z79.82 [facility] ( CURRENT) USE OF ASPIRIN 11/25/2015 Ot Z79.899 OTHER [facility] (CURRENT) DRUG THERAPY 04/19/2018 GAUTAM SAAVEDRA MD R Ot 714.0 RHEUMATOID ARTHRITIS 04/19/2018 GAUTAM SAAVEDRA MD R Ot 729.1 MYALGIA AND MYOSITIS NOS 04/19/2018 GAUTAM SAAVEDRA MD R Ot 241.0 NONTOX UNINODULAR GOITER 04/19/2018 GAUTAM SAAVEDRA MD R Ot 780.79 OTH MALAISE FATIGUE 04/19/2018 GAUTAM SAAVEDRA MD R Ot 786.2 COUGH 04/19/2018 SAADIA DO, AJ R Ot 241.0 NONTOX UNINODULAR GOITER 04/19/2018 SAADIA DO, AJ R Ot V67.59 FOLLOW-UP EXAM NEC 04/19/2018 KIN OQUENDO, NELLY Metz Ot 717.9 INT DERANGEMENT KNEE NOS 04/19/2018 GAUTAM SAAVEDRA MD R Ot 787.91 DIARRHEA 04/19/2018 GAUTAM SAAVEDRA MD R Ot 789.01 ABDOMINAL PAIN, RIGHT UPPER QUADRANT 04/19/2018 GAUTAM SAAVEDRA MD R Ot 789.06 ABDOMINAL PAIN, EPIGASTRIC 04/19/2018 GAUTAM SAAVEDRA MD R Ot 244.9 HYPOTHYROIDISM NOS 04/19/2018 GAUTAM SAAVEDRA MD R Ot 272.4 HYPERLIPIDEMIA NEC/NOS 04/19/2018 Ot 787.91 DIARRHEA 04/19/2018 GAUTAM SAAVEDRA MD R Ot 272.4 HYPERLIPIDEMIA NEC/NOS 04/19/2018 Ot 244.9 HYPOTHYROIDISM NOS 04/19/2018 Ot 272.4 HYPERLIPIDEMIA NEC/NOS 04/19/2018 GAUTAM SAAVEDRA MD R Ot E78.5 HYPERLIPIDEMIA, UNSPECIFIED 04/19/2018 GAUTAM SAAVEDRA MD R Ot J45.909 UNSPECIFIED ASTHMA, UNCOMPLICATED 04/19/2018 GAUTAM SAAVEDRA MD R Ot K21.9 GASTRO-ESOPHAGEAL REFLUX DISEASE WITHOUT 04/19/2018 GAUTAM SAAVEDRA MD R Ot M06.9 RHEUMATOID ARTHRITIS, UNSPECIFIED 04/19/2018 GAUTAM SAAVEDRA MD R Ot S39.92XA UNSPECIFIED INJURY OF LOWER BACK, INITIA 04/19/2018 QUENTIN OQUENDO, GAUTAM R Ot W19.XXXA UNSPECIFIED FALL, INITIAL ENCOUNTER 04/19/2018 QUENTIN OQUENDO, GAUTAM R Ot Y99.8 OTHER EXTERNAL CAUSE STATUS 04/19/2018 TAYA CHENEY APRN Ot E78.00 PURE HYPERCHOLESTEROLEMIA, UNSPECIFIED 04/19/2018 TAYA CHENEY APRN Ot F17.210 NICOTINE DEPENDENCE, CIGARETTES, UNCOMPL 04/19/2018 TAYA CHENEY APRN Ot M06.9 RHEUMATOID ARTHRITIS, UNSPECIFIED 04/19/2018 TAYA CHENEY APRN Ot M25.511 PAIN IN RIGHT SHOULDER 04/19/2018 TAYA CHENEY APRN Ot Z79.82 [facility] (CURRENT) USE OF ASPIRIN 04/19/2018 TAYA CHENEY APRN Ot Z88.5 ALLERGY STATUS TO NARCOTIC AGENT STATUS 04/19/2018 TAYA CHENEY APRN Ot Z90.49 ACQUIRED ABSENCE OF OTHER SPECIFIED PART 04/19/2018 TAYA CHENEY APRN Ot Z90.710 ACQUIRED ABSENCE OF BOTH CERVIX AND UTER 04/19/2018 TAYA CHENEY APRN Ot Z90.89 ACQUIRED ABSENCE OF OTHER ORGANS 04/19/2018 TAYA CHENEY APRN Ot Z95.2 PRESENCE OF PROSTHETIC HEART VALVE 04/19/2018 TAYA CHENEY APRN Ot Z98.890 OTHER SPECIFIED POSTPROCEDURAL STATES 04/22/2018 TAYA CHENEY APRN Ot E78.00 PURE HYPERCHOLESTEROLEMIA, UNSPECIFIED 04/22/2018 TAYA CHENEY APRN Ot F17.210 NICOTINE DEPENDENCE, CIGARETTES, UNCOMPL 04/22/2018 TAYA CHENEY APRN Ot M06.9 RHEUMATOID ARTHRITIS, UNSPECIFIED 04/22/2018 TAYA CHENEY APRN Ot M25.511 PAIN IN RIGHT SHOULDER 04/22/2018 TAYA CHENEY APRN Ot Z79.82 [facility] (CURRENT) USE OF ASPIRIN 04/22/2018 TAYA CHENEY APRN Ot Z88.5 ALLERGY STATUS TO NARCOTIC AGENT STATUS 04/22/2018 TAYA CHENEY APRN Ot Z90.49 ACQUIRED ABSENCE OF OTHER SPECIFIED PART 04/22/2018 TAYA CHENEY APRN Ot Z90.710 ACQUIRED ABSENCE OF BOTH CERVIX AND UTER 04/22/2018 TAYA CHENEY APRN Ot Z90.89 ACQUIRED ABSENCE OF OTHER ORGANS 04/22/2018 TAYA CHENEY APRN Ot Z95.2 PRESENCE OF PROSTHETIC HEART VALVE 04/22/2018 TAYA CHENEY APRN Ot Z98.890 OTHER SPECIFIED POSTPROCEDURAL STATES 04/25/2018 TAYA CHENEY APRN Ot E78.00 PURE HYPERCHOLESTEROLEMIA, UNSPECIFIED 04/25/2018 TAYA CHENEY APRN Ot F17.210 NICOTINE DEPENDENCE, CIGARETTES, UNCOMPL 04/25/2018 TAYA CHENEY APRN Ot M06.9 RHEUMATOID ARTHRITIS, UNSPECIFIED 04/25/2018 TAYA CHENEY APRN Ot M25.511 PAIN IN RIGHT SHOULDER 04/25/2018 TAYA CHENEY APRN Ot Z79.82 [facility] (CURRENT) USE OF ASPIRIN 04/25/2018 TAYA CHENEY APRN Ot Z88.5 ALLERGY STATUS TO NARCOTIC AGENT STATUS 04/25/2018 TAYA CHENEY APRN Ot Z90.49 ACQUIRED ABSENCE OF OTHER SPECIFIED PART 04/25/2018 TAYA CHENEY APRN Ot Z90.710 ACQUIRED ABSENCE OF BOTH CERVIX AND UTER 04/25/2018 TAYA CHENEY APRN Ot Z90.89 ACQUIRED ABSENCE OF OTHER ORGANS 04/25/2018 TAYA CHENEY APRN Ot Z95.2 PRESENCE OF PROSTHETIC HEART VALVE 04/25/2018 TAYA CHENEY APRN Ot Z98.890 OTHER SPECIFIED POSTPROCEDURAL STATES 05/26/2018 GAUTAM SAAVEDRA MD R Ot 714.0 RHEUMATOID ARTHRITIS 05/26/2018 GAUTAM SAAVEDRA MD R Ot 729.1 MYALGIA AND MYOSITIS NOS 05/26/2018 GAUTAM SAAVEDRA MD R Ot 241.0 NONTOX UNINODULAR GOITER 05/26/2018 GAUTAM SAAVEDRA MD R Ot 780.79 OTH MALAISE FATIGUE 05/26/2018 GAUTAM SAAVEDRA MD Ot 786.2 COUGH 05/26/2018 SAADIA DO, AJ R Ot 241.0 NONTOX UNINODULAR GOITER 05/26/2018 SAADIA DO, AJ R Ot V67.59 FOLLOW-UP EXAM NEC 05/26/2018 NELLY SANDERSON MD Ot 717.9 INT DERANGEMENT KNEE NOS 05/26/2018 GAUTAM SAAVEDRA MD R Ot 787.91 DIARRHEA 05/26/2018 QUENTIN OQUENDO, GAUTAM R Ot 789.01 ABDOMINAL PAIN, RIGHT UPPER QUADRANT 05/26/2018 QUENTIN OQUENDO, GAUTAM R Ot 789.06 ABDOMINAL PAIN, EPIGASTRIC 05/26/2018 QUENTIN OQUENDO, GAUTAM R Ot 244.9 HYPOTHYROIDISM NOS 05/26/2018 GAUTAM SAAVEDRA MD R Ot 272.4 HYPERLIPIDEMIA NEC/NOS 05/26/2018 Ot 787.91 DIARRHEA 05/26/2018 GAUTAM SAAVEDRA MD R Ot 272.4 HYPERLIPIDEMIA NEC/NOS 05/26/2018 Ot 244.9 HYPOTHYROIDISM NOS 05/26/2018 Ot 272.4 HYPERLIPIDEMIA NEC/NOS 05/26/2018 GAUTAM SAAVEDRA MD R Ot E78.5 HYPERLIPIDEMIA, UNSPECIFIED 05/26/2018 QUENTIN OQUENDO GAUTAM R Ot J45.909 UNSPECIFIED ASTHMA, UNCOMPLICATED 05/26/2018 QUENTIN OQUENDO, GAUTAM R Ot K21.9 GASTRO-ESOPHAGEAL REFLUX DISEASE WITHOUT 05/26/2018 QUENTIN OQUENDO GAUTAM R Ot M06.9 RHEUMATOID ARTHRITIS, UNSPECIFIED 05/26/2018 QUENTIN OQUENDO, GAUTAM R Ot S39.92XA UNSPECIFIED INJURY OF LOWER BACK, INITIA 05/26/2018 QUENTIN OQUENDO, GAUTAM R Ot W19.XXXA UNSPECIFIED FALL, INITIAL ENCOUNTER 05/26/2018 QUENTIN OQUENDO, GAUTAM R Ot Y99.8 OTHER EXTERNAL CAUSE STATUS 05/26/2018 GAUTAM SAAVEDRA MD R Ot E03.9 HYPOTHYROIDISM, UNSPECIFIED 05/26/2018 GAUTAM SAAVEDRA MD R Ot E78.5 HYPERLIPIDEMIA, UNSPECIFIED 05/26/2018 QUENTIN OQUENDO, GAUTAM R Ot G89.29 OTHER CHRONIC PAIN 05/26/2018 GAUTAM SAAVEDRA MD R Ot M25.511 PAIN IN RIGHT SHOULDER 06/02/2018 GAUTAM SAAVEDRA MD R Ot Z12.31 ENCNTR SCREEN MAMMOGRAM FOR MALIGNANT NE 06/06/2018 GAUTAM SAAVEDRA MD R Ot R92.8 OTH ABN AND INCONCLUSIVE FINDINGS ON DX 06/06/2018 GAUTAM SAAVEDRA MD R Ot Z12.31 ENCNTR SCREEN MAMMOGRAM FOR MALIGNANT NE 06/17/2018 GAUTAM SAAVEDRA MD R Ot E03.9 HYPOTHYROIDISM, UNSPECIFIED 06/17/2018 GAUTAM SAAVEDRA MD R Ot E78.5 HYPERLIPIDEMIA, UNSPECIFIED 06/17/2018 GAUTAM SAAVEDRA MD R Ot G89.29 OTHER CHRONIC PAIN 06/17/2018 GAUTAM SAAVEDRA MD R Ot M25.511 PAIN IN RIGHT SHOULDER 07/01/2018 GAUTAM SAAVEDRA MD Ot R92.8 OTH ABN AND INCONCLUSIVE FINDINGS ON DX 07/01/2018 GAUTAM SAAVEDRA MD R Ot Z12.31 ENCNTR SCREEN MAMMOGRAM FOR MALIGNANT NE 07/03/2018 GAUTAM SAAVEDRA MD R Ot E03.9 HYPOTHYROIDISM, UNSPECIFIED 07/03/2018 GAUTAM SAAVEDRA MD R Ot E78.5 HYPERLIPIDEMIA, UNSPECIFIED 07/03/2018 GAUTAM SAAVEDRA MD R Ot G89.29 OTHER CHRONIC PAIN 07/03/2018 GAUTAM SAAVEDRA MD Ot M25.511 PAIN IN RIGHT SHOULDER 07/07/2018 Ot 787.91 DIARRHEA 07/07/2018 KAPIL DOMINGO MD, Ot E78.00 PURE HYPERCHOLESTEROLEMIA, UNSPECIFIED 07/07/2018 KAPIL DOMINGO MD Ot F17.210 NICOTINE DEPENDENCE, CIGARETTES, UNCOMPL 07/07/2018 KAPIL DOMINGO MD Ot M06.9 RHEUMATOID ARTHRITIS, UNSPECIFIED 07/07/2018 KAPIL DOMINGO MD Ot R10.11 RIGHT UPPER QUADRANT PAIN 07/07/2018 KAPIL DOMINGO MD Ot Z79.52 [facility] (CURRENT) USE OF SYSTEMIC STER 07/07/2018 KAPIL DOMINGO MD Ot Z79.82 [facility] (CURRENT) USE OF ASPIRIN 07/07/2018 KAPIL DOMINGO MD Ot Z88.5 ALLERGY STATUS TO NARCOTIC AGENT STATUS 07/07/2018 KAPIL DOMINGO MD Ot Z90.49 ACQUIRED ABSENCE OF OTHER SPECIFIED PART 07/07/2018 KAPIL DOMINGO MD Ot Z90.710 ACQUIRED ABSENCE OF BOTH CERVIX AND UTER 07/07/2018 KAPIL DOMINGO MD Ot Z90.89 ACQUIRED ABSENCE OF OTHER ORGANS 07/09/2018 KAPIL DOMINGO MD, Ot E78.00 PURE HYPERCHOLESTEROLEMIA, UNSPECIFIED 07/09/2018 KAPIL DOMINGO MD Ot F17.210 NICOTINE DEPENDENCE, CIGARETTES, UNCOMPL 07/09/2018 KAPIL DOMINGO MD, Ot M06.9 RHEUMATOID ARTHRITIS, UNSPECIFIED 07/09/2018 KAPIL DOMINGO MD, Ot R10.11 RIGHT UPPER QUADRANT PAIN 07/09/2018 KAPIL DOMINGO MD, Ot Z79.52 [facility] (CURRENT) USE OF SYSTEMIC STER 07/09/2018 KAPIL DOMINGO MD, Ot Z79.82 [facility] (CURRENT) USE OF ASPIRIN 07/09/2018 KAPIL DOMINGO MD, Ot Z88.5 ALLERGY STATUS TO NARCOTIC AGENT STATUS 07/09/2018 KAPIL DOMINGO MD, Ot Z90.49 ACQUIRED ABSENCE OF OTHER SPECIFIED PART 07/09/2018 KAPIL DOMINGO MD, Ot Z90.710 ACQUIRED ABSENCE OF BOTH CERVIX AND UTER 07/09/2018 KAPIL DOMINGO MD, Ot Z90.89 ACQUIRED ABSENCE OF OTHER ORGANS Procedures There is no data. Results Test Result Range Complete blood count (CBC) with automated white blood cell (WBC) differential - 05/26/18 10:34 Blood leukocytes automated count (number/volume) 8.2 10*3/uL 4.3-11.0 Blood erythrocytes automated count (number/volume) 5.12 10*6/uL 4.35-5.85 Venous blood hemoglobin measurement (mass/volume) 15.1 g/dL 11.5-16.0 Blood hematocrit (volume fraction) 47 % 35-52 Automated erythrocyte mean corpuscular volume 91 [foz_us] 80-99 Automated erythrocyte mean corpuscular hemoglobin (mass per erythrocyte) 30 pg 25-34 Automated erythrocyte mean corpuscular hemoglobin concentration measurement ( mass/volume) 33 g/dL 32-36 Automated erythrocyte distribution width ratio 14.2 % 10.0-14.5 Automated blood platelet count (count/volume) 200 10*3/uL 130-400 Automated blood platelet mean volume measurement 10.1 [foz_us] 7.4-10.4 Automated blood neutrophils/100 leukocytes 76 % 42-75 Automated blood lymphocytes/100 leukocytes 15 % 12-44 Blood monocytes/100 leukocytes 7 % 0-12 Automated blood eosinophils/100 leukocytes 2 % 0-10 Automated blood basophils/100 leukocytes 0 % 0-10 Blood neutrophils automated count (number/volume) 6.3 10*3 1.8-7.8 Blood lymphocytes automated count (number/volume) 1.2 10*3 1.0-4.0 Blood monocytes automated count (number/volume) 0.6 10*3 0.0-1.0 Automated eosinophil count 0.1 10*3/uL 0.0-0.3 Automated blood basophil count (count/volume) 0.0 10*3/uL 0.0-0.1 Comprehensive metabolic panel - 05/26/18 10:34 Serum or plasma sodium measurement (moles/volume) 142 mmol/L 135-145 Serum or plasma potassium measurement (moles/volume) 4.2 mmol/L 3.6-5.0 Serum or plasma chloride measurement (moles/volume) 105 mmol/L 98-107 Carbon dioxide 27 mmol/L 21-32 Serum or plasma anion gap determination (moles/volume) 10 mmol/L 5-14 Serum or plasma urea nitrogen measurement (mass/volume) 11 mg/dL 7-18 Serum or plasma creatinine measurement (mass/volume) 0.77 mg/dL 0.60-1.30 Serum or plasma urea nitrogen/creatinine mass ratio 14 NRG Serum or plasma creatinine measurement with calculation of estimated glomerular filtration rate > NRG Serum or plasma glucose measurement (mass/volume) 84 mg/dL 70-105 Serum or plasma calcium measurement (mass/volume) 9.3 mg/dL 8.5-10.1 Serum or plasma total bilirubin measurement (mass/volume) 0.3 mg/dL 0.1-1.0 Serum or plasma alkaline phosphatase measurement (enzymatic activity/volume) 110 U/L 40-136 Serum or plasma aspartate aminotransferase measurement (enzymatic activity/ volume) 17 U/L 5-34 Serum or plasma alanine aminotransferase measurement (enzymatic activity/volume ) 11 U/L 0-55 Serum or plasma protein measurement (mass/volume) 6.5 g/dL 6.4-8.2 Serum or plasma albumin measurement (mass/volume) 4.1 g/dL 3.2-4.5 CALCIUM CORRECTED 9.2 mg/dL 8.5-10.1 Lipid 1996 panel - 05/26/18 10:34 Serum or plasma triglyceride measurement (mass/volume) 144 mg/dL <150 Serum or plasma cholesterol measurement (mass/volume) 181 mg/dL < 200 Serum or plasma cholesterol in HDL measurement (mass/volume) 47 mg/ dL 40-60 Cholesterol in LDL [mass/volume] in serum or plasma by direct assay 110 mg/dL 1-129 Serum or plasma cholesterol in VLDL measurement (mass/volume) 29 mg/ dL 5-40 THYROID STIMULATING HORMONE - 05/26/18 10:34 THYROID STIMULATING HORMONE 1.19 u[iU]/mL 0.35-4.94 Serum or plasma estradiol (E2) measurement (mass/volume) - 05/26/18 10:34 Serum or plasma estrogen measurement (mass/volume) 81.0 pg/mL NR Complete blood count (CBC) with automated white blood cell (WBC) differential - 07/06/18 20:40 Blood leukocytes automated count (number/volume) 6.6 10*3/uL 4.3-11.0 Blood erythrocytes automated count (number/volume) 4.92 10*6/uL 4.35-5.85 Venous blood hemoglobin measurement (mass/volume) 14.9 g/dL 11.5-16.0 Blood hematocrit (volume fraction) 45 % 35-52 Automated erythrocyte mean corpuscular volume 92 [foz_us] 80-99 Automated erythrocyte mean corpuscular hemoglobin (mass per erythrocyte) 30 pg 25-34 Automated erythrocyte mean corpuscular hemoglobin concentration measurement ( mass/volume) 33 g/dL 32-36 Automated erythrocyte distribution width ratio 14.6 % 10.0-14.5 Automated blood platelet count (count/volume) 235 10*3/uL 130-400 Automated blood platelet mean volume measurement 10.9 [foz_us] 7.4-10.4 Automated blood neutrophils/100 leukocytes 56 % 42-75 Automated blood lymphocytes/100 leukocytes 30 % 12-44 Blood monocytes/100 leukocytes 10 % 0-12 Automated blood eosinophils/100 leukocytes 3 % 0-10 Automated blood basophils/100 leukocytes 1 % 0-10 Blood neutrophils automated count (number/volume) 3.7 10*3 1.8-7.8 Blood lymphocytes automated count (number/volume) 2.0 10*3 1.0-4.0 Blood monocytes automated count (number/volume) 0.7 10*3 0.0-1.0 Automated eosinophil count 0.2 10*3/uL 0.0-0.3 Automated blood basophil count (count/volume) 0.0 10*3/uL 0.0-0.1 Comprehensive metabolic panel - 07/06/18 20:40 Serum or plasma sodium measurement (moles/volume) 143 mmol/L 135-145 Serum or plasma potassium measurement (moles/volume) 3.6 mmol/L 3.6-5.0 Serum or plasma chloride measurement (moles/volume) 107 mmol/L 98-107 Carbon dioxide 23 mmol/L 21-32 Serum or plasma anion gap determination (moles/volume) 13 mmol/L 5-14 Serum or plasma urea nitrogen measurement (mass/volume) 12 mg/dL 7-18 Serum or plasma creatinine measurement (mass/volume) 0.77 mg/dL 0.60-1.30 Serum or plasma urea nitrogen/creatinine mass ratio 16 NRG Serum or plasma creatinine measurement with calculation of estimated glomerular filtration rate > NRG Serum or plasma glucose measurement (mass/volume) 91 mg/dL 70-105 Serum or plasma calcium measurement (mass/volume) 9.3 mg/dL 8.5-10.1 Serum or plasma total bilirubin measurement (mass/volume) 0.2 mg/dL 0.1-1.0 Serum or plasma alkaline phosphatase measurement (enzymatic activity/volume) 119 U/L 40-136 Serum or plasma aspartate aminotransferase measurement (enzymatic activity/ volume) 18 U/L 5-34 Serum or plasma alanine aminotransferase measurement (enzymatic activity/volume ) 17 U/L 0-55 Serum or plasma protein measurement (mass/volume) 6.6 g/dL 6.4-8.2 Serum or plasma albumin measurement (mass/volume) 4.1 g/dL 3.2-4.5 CALCIUM CORRECTED 9.2 mg/dL 8.5-10.1 Lipase - 07/06/18 20:40 Lipase 53 U/L 8-78 Complete urinalysis with reflex to culture - 07/06/18 20:55 Urine color determination YELLOW NRG Urine clarity determination SLIGHTLY CLOUDY NRG Urine pH measurement by test strip 6 5-9 Specific gravity of urine by test strip 1.015 1.016- 1.022 Urine protein assay by test strip, semi-quantitative NEGATIVE NEGATIVE Urine glucose detection by automated test strip NEGATIVE NEGATIVE Erythrocytes detection in urine sediment by light microscopy NEGATIVE NEGATIVE Urine ketones detection by automated test strip NEGATIVE NEGATIVE Urine nitrite detection by test strip NEGATIVE NEGATIVE Urine total bilirubin detection by test strip NEGATIVE NEGATIVE Urine urobilinogen measurement by automated test strip (mass/volume) NORMAL NORMAL Urine leukocyte esterase detection by dipstick 1+ NEGATIVE Automated urine sediment erythrocyte count by microscopy (number/high power field) NONE NRG Automated urine sediment leukocyte count by microscopy (number/high power field ) [HPF] NRG Bacteria detection in urine sediment by light microscopy TRACE NRG Squamous epithelial cells detection in urine sediment by light microscopy 10-25 NRG Crystals detection in urine sediment by light microscopy NONE NRG Casts detection in urine sediment by light microscopy NONE NRG Mucus detection in urine sediment by light microscopy SMALL NRG Complete urinalysis with reflex to culture NO NRG Yeast detection in urine sediment by light microscopy FEW NRG Encounters ACCT No. Visit Date/Time Discharge Status Pt. Type Provider Facility Loc./Unit Complaint [id number] 07/06/2018 20:08:00 07/07/2018 00:21:00 DIS Emergency KAPIL DOMINGO MD [facility] ER ABD PAIN [id number] 06/09/2018 11:04:00 06/09/2018 23:59:59 CLS Preadmit GAUTAM SAAVEDRA MD [facility] RAD NODULAR RADIOLOGIC DENSITY [id number] 06/03/2018 09:06:00 06/03/2018 23:59:59 CLS Outpatient GAUTAM SAAVEDRA MD [facility] RAD SCREENING [id number] 05/26/2018 10:06:00 05/26/2018 23:59:59 CLS Outpatient GAUTAM SAAVEDRA MD [facility] RAD CHRONIC SHOULDER PAIN, HYPOTHYROIDISM [id number] 04/19/2018 18:23:00 04/19/2018 19:33:00 DIS Emergency TAYA CHENEY APRN [facility] ER R SHOULDER BLADE PAIN [id number] 03/07/2015 10:14:00 03/07/2015 23:59:59 CLS Outpatient GAUTAM SAAVEDRA MD [facility] RAD FALL ONTO COCCYX [id number] 01/28/2015 09:26:00 01/28/2015 23:59:59 CLS Outpatient GAUTAM SAAVEDRA MD [facility] LAB HLP,RA GERD,ASTHMA [id number] 02/19/2014 13:32:00 02/19/2014 16:12:00 DIS Emergency JAMES CAVAZOS MD [facility] ER LOW BACK PAIN/MULTIPLE COMPLAINTS [id number] 10/28/2013 15:09:00 10/28/2013 23:59:59 CLS Outpatient GAUTAM SAAVEDRA MD [facility] LAB HYPERLIPADEMIA [id number] 05/21/2013 11:59:00 08/19/2013 00:01:00 DIS Outpatient GAUTAM SAAVEDRA MD [facility] LAB DIARRHEA [id number] 07/02/2013 11:07:00 07/02/2013 23:59:59 CLS Outpatient GAUTAM SAAVEDRA MD [facility] LAB HYPOTHYROIDISM [id number] 06/23/2013 09:51:00 06/23/2013 11:52:00 DIS Emergency GINETTE WALLACE YOANNA K [facility] ER LEFT HIP PAIN [id number] 06/17/2013 13:02:00 06/17/2013 23:59:59 CLS Outpatient SAADIA WALLACE AJ R [facility] RAD THYROID NODULE [id number] 05/21/2013 13:51:00 05/21/2013 23:59:59 CLS Outpatient GAUTAM SAAVEDRA MD [facility] RAD RUQ PAIN [id number] 05/02/2013 11:33:00 05/02/2013 14:27:00 DIS Emergency JAMES CAVAZOS MD [facility] ER DIARRHEA [id number] 03/04/2013 09:19:00 03/04/2013 23:59:59 CLS Outpatient NELLY SANDERSON MD [facility] RAD INTERNAL DERAINGEMENT OF KNEE [id number] 01/29/2013 14:36:00 01/29/2013 23:59:59 CLS Outpatient [id number] 01/26/2013 09:41:00 01/26/2013 13:00:00 DIS Emergency TRACY GREENWOOD [facility] ER RIGHT KNEE INJURY [id number] 12/30/2012 11:27:00 12/30/2012 23:59:59 CLS Outpatient GAUTAM SAAVEDRA MD [facility] RAD COUGH,FATIGUE [id number] 12/16/2012 10:08:00 12/16/2012 23:59:59 CLS Outpatient GAUTAM SAAVEDRA MD [facility] RAD FIBROMALGIA RHUEMOTIOIS ARTHRITIS [id number] 12/12/2012 12:32:00 12/12/2012 13:48:00 DIS Emergency TRACY GREENWOOD [facility] ER COUGH [id number] 11/23/2015 08:06:00 Document Registration [id number] 05/25/2014 08:36:00 Document Registration [id number] 08/20/2013 14:00:00 Document Registration [id number] 01/30/2011 10:44:00 Document Registration
--- NOTE | 2018-07-21 17:12 | OPERATIVE REPORT ---
DATE OF SERVICE: 07/21/2018 PREOPERATIVE DIAGNOSIS: Gastritis, epigastric pain. POSTOPERATIVE DIAGNOSIS: Gastritis, hiatal hernia. PROCEDURE: EGD with biopsy. SURGEON: John Horton DO. RESIDENTIAL PROPERTY TAX APPRAISER: None. ANESTHESIA: IV sedation by the WAREHOUSEMAN. SPECIMEN: One biopsy from antrum, one biopsy from the body of stomach and 2 biopsies from the GE junction. BLOOD LOSS: Scant. FLUIDS: Per anesthesia. POSTOPERATIVE CONDITION: Stable. INDICATION FOR PROCEDURE: The patient is a 43-year-old female who has been having some epigastric pain and needed workup. FINDINGS: The patient had some gastritis and a large hiatal hernia. Biopsies performed, sent to pathology. PROCEDURE NOTE: After informed consent was obtained, the patient was brought to the endoscopy suite, placed in the bed left lateral decubitus position. She was administered IV sedation by the WAREHOUSEMAN who then monitored her vitals the entire time, heart rate, blood pressure and pulse ox and the scope was inserted down the mouth through the esophagus into the stomach. Upon entry, the stomach looked like somewhat gastritis in the antrum. Pushed in the duodenum. Duodenum looked fine. Took a picture and then backed up in the antrum. Did a biopsy saw another gastritis in the body of stomach and then another biopsy at the body of the stomach and then retroflexed to look up. Saw a large hiatal hernia, took a picture of this and then able to take a picture of looking down from the esophagus with some mild changes, like to do a biopsy here. Took a biopsy of the GE junction. Did 2 biopsies and then slowly withdrew the scope up the esophagus and out the mouth. The patient tolerated the procedure and recovered in the endoscopy suite. Job ID: [id number] DocumentID: [id number] Dictated Date: 07/21/2018 10:58:10 Meter Changes Records Clerk Date: 07/21/2018 17:11:51 Dictated By: JOHN HORTON DO
== END 2018-07-21 12:00 | disposition home or self-care (01) ==
LOC: ENDO 09:47
PROVIDERS: ATTEND Surgery
DX: K29.70 Gastritis, unspecified, without bleeding (principal); K44.9 Diaphragmatic hernia without obstruction or gangrene; K21.0 Gastro-esophageal reflux disease with esophagitis; K31.89 Other diseases of stomach and duodenum; F41.9 Anxiety disorder, unspecified; E78.5 Hyperlipidemia, unspecified; F17.210 Nicotine dependence, cigarettes, uncomplicated; J30.2 Other seasonal allergic rhinitis; M19.91 Primary osteoarthritis, unspecified site; Z79.899 Other long term (current) drug therapy; Z88.5 Allergy status to narcotic agent

== ENCOUNTER → 2018-10-14 | Outpatient (CLI) | payer MEDICARE, MEDICAID ==
[2018-10-14 09:55] LABS: BASOPHILS % (AUTO) 0 % (0-10); EOSINOPHILS # (AUTO) 0.2 10^3/uL (0.0-0.3); EOSINOPHILS % (AUTO) 2 % (0-10); HEMATOCRIT 45 % (35-52); LYMPHOCYTES # (AUTO) 1.6 X 10^3 (1.0-4.0); LYMPHOCYTES % (AUTO) 24 % (12-44); MEAN CORPUSCULAR HEMOGLOBIN 31 PG (25-34); MEAN CORPUSCULAR HGB CONC 33 G/DL (32-36); MEAN CORPUSCULAR VOLUME 93 FL (80-99); MEAN PLATELET VOLUME 10.3 FL (7.4-10.4); MONOCYTES # (AUTO) 0.7 X 10^3 (0.0-1.0); MONOCYTES % (AUTO) 10 % (0-12); NEUTROPHILS # (AUTO) 4.3 X 10^3 (1.8-7.8); NEUTROPHILS % (AUTO) 63 % (42-75); PLATELET COUNT 227 10^3/uL (130-400); RED CELL DISTRIBUTION WIDTH 13.7 % (10.0-14.5); WHITE BLOOD COUNT 6.8 10^3/uL (4.3-11.0)
[2018-10-14 10:15] LABS: ALANINE AMINOTRANSFERASE 11 U/L (0-55); ALKALINE PHOSPHATASE 111 U/L (40-136); BILIRUBIN,TOTAL 0.3 MG/DL (0.1-1.0); BUN/CREATININE RATIO 20; CALCIUM 9.6 MG/DL (8.5-10.1); CARBON DIOXIDE 24 MMOL/L (21-32); CHLORIDE 104 MMOL/L (98-107); CHOLESTEROL 195 MG/DL (< 200); GFR ESTIMATED > 60; GLUCOSE 90 MG/DL (70-105); HDL CHOLESTEROL 62 MG/DL (40-60); SODIUM 140 MMOL/L (135-145); TOTAL PROTEIN 6.4 GM/DL (6.4-8.2); TRIGLYCERIDES 111 MG/DL (<150); VLDL CHOLESTEROL 22 MG/DL (5-40)
== END ==
LOC: LAB 09:39
PROVIDERS: ATTEND Family Medicine
DX: E78.2 Mixed hyperlipidemia (principal); E03.9 Hypothyroidism, unspecified; M25.411 Effusion, right shoulder
CPT/HCPCS: 36415; 80053; 80061; 84443; 85025

== ENCOUNTER → 2018-10-28 | Outpatient (CLI) | payer MEDICARE, MEDICAID ==
--- NOTE | 2018-10-28 13:39 | Diagnostic Imaging Report ---
PROCEDURE: MR imaging cervical spine without contrast. TECHNIQUE: Multiplanar, multisequence MR imaging of the cervical spine was performed without contrast. INDICATION: Right shoulder pain. COMPARISON: No prior MRI studies are available for comparison. FINDINGS: There is reversal of the normal cervical lordotic curvature. Vertebral body marrow signal is unremarkable apart from benign hemangiolipoma within the T1 vertebral body. There is degenerative disc disease at the C5-6 level and as well as the C6-7 level with disc space narrowing, desiccation and marginal osteophyte formation. Cervical cord does show normal homogeneous signal intensity. No abnormal cord signal is identified. Craniocervical junction is unremarkable. C2-3: No central canal or neural foramina narrowing is seen. C3-4: No central canal or neural foraminal narrowing is seen. C4-5: No central canal or neural foraminal narrowing is seen. C5-6: Broad-based disc/osteophyte complex indents the ventral thecal sac. Central canal remains patent. Uncovertebral joint degenerative change does result in significant right neural foraminal stenosis. There is mild left neural foraminal narrowing. C6-7: Disc/osteophyte complex indents the ventral thecal sac. No significant central canal narrowing is seen. There is moderate left and significant right neural foraminal stenosis due to uncovertebral joint degenerative change. C7-T1: No central canal or neural foraminal stenosis is identified. Paraspinous tissues are unremarkable. IMPRESSION: Lower cervical spondylosis with neural foraminal stenosis at C5-6 and C6-7 levels, as described. No significant central canal stenosis is identified. Dictated by: Dictated on workstation # [id number]
== END ==
LOC: RAD 12:42
PROVIDERS: ATTEND Orthopaedic Surgery
DX: M47.22 Other spondylosis with radiculopathy, cervical region (principal); M48.02 Spinal stenosis, cervical region
CPT/HCPCS: 72141

== ENCOUNTER 2018-10-30 10:09 | Emergency (ER) | payer MEDICARE, MEDICAID ==
[~2018-10-30] VITALS: Ht 165.1 cm; Wt 70.3 kg
--- NOTE | 2018-10-30 10:15 | NUR ---
1 UNOPENED PACK 8 PILLS OF CORICDIN HBP SENT TO PHARMACY TO BE STORED
[2018-10-30] MEDS ORDERED: PRD20T PO (10:49)
--- NOTE | 2018-10-30 10:49 | ED Integumentary General ---
General Chief Complaint: Bite-Animal/Human/Insect Stated Complaint: BEE STING Nursing Triage Note: PT AMB TO [facility] 10 WITH COMPLAINT OF BEE STING TO RIGHT WRIST THAT HAPPENED YESTERDAY. PT STATES THE SWELLING HAS NOT GONE DOWN AND WOKE UP THIS MORNING WITH SEVERE ITCHING. Source: patient Exam Limitations: no limitations History of Present Illness Date Seen by Provider: Oct 30, 2018 Time Seen by Provider: 10:46 Initial Comments To ER with a bee sting that happened to the right wrist yesterday morning. Reports persistent swelling and severe itching. Is not taking anything for it. Timing/Duration: yesterday Severity: moderate Location: extremities Possible Cause: insect sting Associated Symptoms: other (itching) Allergies and Home Medications Allergies Coded Allergies: hydrocodone (Unverified Allergy, Mild, 08/03/08) morphine (Unverified Allergy, Mild, 08/03/08) fentanyl (Verified Allergy, Unknown, 07/07/18) Home Medications Albuterol Sulfate 18 Gm Hfa.aer.ad, 2 PUFF IH Q4H PRN for WHEEZING, (Reported) Aspirin 81 Mg Tab.chew, 81 MG PO DAILY, (Reported) Atorvastatin Calcium 20 Mg Tablet, 20 MG PO HS, (Reported) Celecoxib 200 Mg Capsule, 200 MG PO BID, (Reported) Dexlansoprazole 60 Mg bp, 60 MG PO DAILY, (Reported) Estradiol 1 Mg Tablet, 1 MG PO DAILY, (Reported) Methotrexate Sodium 2.5 Mg Tablet, 2.5 MG PO WEEK, (Reported) Patient Home Medication List Home Medication List Reviewed: Yes Review of Systems Review of Systems Constitutional: see HPI EENTM: see HPI Respiratory: no symptoms reported Cardiovascular: no symptoms reported Genitourinary: no symptoms reported Musculoskeletal: no symptoms reported Skin: see HPI Psychiatric/Neurological: No Symptoms Reported Endocrine: No Symptoms Reported Past Qparxvb-Fiyrjd-Djjbch Hx Patient Social History Alcohol Use: Denies Use Recreational Drug Use: No Smoking Status: Current Everyday Smoker Type Used: Cigarettes 2nd Hand Smoke Exposure: Yes Recent Foreign Travel: No Contact w/Someone Who Travel: No Recent Infectious Disease Expo: No Recent Hopitalizations: No Physical Abuse: No Sexual Abuse: No Mistreated: No Fear: No Immunizations Up To Date Tetanus Booster (TDap): Unknown PED Vaccines UTD: Yes Seasonal Allergies Seasonal Allergies: Yes Past Medical History Surgeries: Yes (breast cystectomy) Appendectomy, Breast, Gallbladder, Hysterectomy, Oophorectomy, Tonsillectomy Respiratory: No Cardiac: Yes High Cholesterol Neurological: No 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 Genitourinary: No Gastrointestinal: Yes (CHRONIC ABD PAIN, epigastric pain) Musculoskeletal: Yes Arthritis, Rheumatoid Arthritis Endocrine: Yes (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) HEENT: No Cancer: No Psychosocial: No Integumentary: No Blood Disorders: No Family Medical History No Pertinent Family Hx Physical Exam Vital Signs Vital Signs - First Documented 10/30/18 10:19 Temp 99.0 Pulse 95 Resp 16 B/P (MAP) 105/79 (88) Pulse Ox 99 O2 Delivery Room Air Capillary Refill : Less Than 3 Seconds General Appearance: WD/WN, no apparent distress HEENT: PERRL/EOMI, normal ENT inspection Respiratory: no respiratory distress, no accessory muscle use Neurologic/Psychiatric: alert, normal mood/affect, oriented x 3 Skin: normal color, warm/dry Skin Problem Location: upper extremities Skin Problem Character: other (minor erythema and swelling to the radial side of the right wrist.) Progress/Results/Core Measures Results/Orders Vital Signs/I&O 10/30/18 10:19 Temp 99.0 Pulse 95 Resp 16 B/P (MAP) 105/79 (88) Pulse Ox 99 O2 Delivery Room Air Blood Pressure Mean: 88 Departure Impression Primary Impression: Bee sting Qualified Codes: T63.444A - Toxic effect of venom of bees, undetermined, initial encounter Disposition: 01 HOME, SELF-CARE Condition: Stable Departure-Patient Inst. Decision time for Depature: 10:48 Referrals: GAUTAM SAAVEDRA MD (PCP/Family) Primary Care Physician Patient Instructions: Insect Bites and Stings (DC) Add. Discharge Instructions: 1. Go home and take a Benadryl one tablet every 4 hours. This will help a lot with the itching and the swelling. Apply a cool ice pack to the area for 30 minutes every 1-2 hours. Steroid as directed. All discharge instructions reviewed with patient and/or family. Voiced understanding. Scripts Prednisone (Prednisone) 20 Mg Tab 40 MG PO DAILY, #4 TAB 0 Refills Prov: TAYA CHENEY APRN 10/30/18 TAYA CHENEY APRN Oct 30, 2018 10:49
[2018-10-30 11:08] VITALS: BP 105/79
== END 2018-10-30 11:10 | disposition home or self-care (01) ==
LOC: EDUNIT# 10:09 → ER 10:10
DX: T63.444A Toxic effect of venom of bees, undetermined, initial encounter (principal); E78.00 Pure hypercholesterolemia, unspecified; M06.9 Rheumatoid arthritis, unspecified; F17.210 Nicotine dependence, cigarettes, uncomplicated; Z90.710 Acquired absence of both cervix and uterus; Z90.49 Acquired absence of other specified parts of digestive tract; Z88.5 Allergy status to narcotic agent; Z79.82 Long term (current) use of aspirin; Z90.89 Acquired absence of other organs
CPT/HCPCS: 99283

== ENCOUNTER 2020-04-08 10:26 | Emergency (ER) | payer MEDICARE, MEDICAID ==
[~2020-04-08] VITALS: Ht 176 cm; Wt 81.0 kg
[2020-04-08 11:06] VITALS: BP 116/68
[2020-04-08] MEDS ORDERED: GABA300C PO (11:49)
--- NOTE | 2020-04-08 11:49 | ED EENT ---
History of Present Illness General Chief Complaint: Ear Problems Stated Complaint: R EAR PAIN Nursing Triage Note: states ear pain left side Source: patient Exam Limitations: no limitations History of Present Illness Date Seen by Provider: Apr 08, 2020 Time Seen by Provider: 11:30 Initial Comments This 44-year-old woman presents to the emergency room with complaints of right ear pain x1 month. She has tried irrigating with peroxide and treating with Tylenol and NSAIDs without success. She has tried heating pad as well. She has not yet had her ear evaluated. No fevers. Allergies and Home Medications Allergies Coded Allergies: hydrocodone (Unverified Allergy, Mild, 08/03/08) morphine (Unverified Allergy, Mild, 08/03/08) fentanyl (Verified Allergy, Unknown, 07/07/18) Home Medications Albuterol Sulfate 18 Gm Hfa.aer.ad, 2 PUFF IH Q4H PRN for WHEEZING, (Reported) Aspirin 81 Mg Tab.chew, 81 MG PO DAILY, (Reported) Atorvastatin Calcium 20 Mg Tablet, 20 MG PO HS, (Reported) Celecoxib 200 Mg Capsule, 200 MG PO BID, (Reported) Dexlansoprazole 60 Mg Adolfo.bp, 60 MG PO DAILY, (Reported) Estradiol 1 Mg Tablet, 1 MG PO DAILY, (Reported) Gabapentin 300 Mg Capsule, 300 MG PO TID PRN for PAIN-BREAKTHROUGH Prescribed by: MEREDITH FIGUEROA on 04/08/20 1149 Methotrexate Sodium 2.5 Mg Tablet, 2.5 MG PO WEEK, (Reported) Prednisone 20 Mg Tab, 40 MG PO DAILY Prescribed by: TAYA CHENEY on 10/30/18 1049 Patient Home Medication List Home Medication List Reviewed: Yes Review of Systems Review of Systems Constitutional: no symptoms reported Eyes: No Symptoms Reported Ears: See HPI Nose: no symptoms reported Mouth: no symptoms reported Throat: no symptoms reported Respiratory: no symptoms reported Cardiovascular: no symptoms reported Gastrointestinal: no symptoms reported Musculoskeletal: no symptoms reported Skin: no symptoms reported Neurological: No Symptoms Reported Hematologic/Lymphatic: No Symptoms Reported Past Nihbvly-Thkjyz-Bozetd Hx Past Med/Social Hx: Reviewed Nursing Past Med/Soc Hx Patient Social History Alcohol Use: Denies Use Type Used: Cigarettes 2nd Hand Smoke Exposure: Yes Recent Infectious Disease Expo: No Recent Hopitalizations: No Immunizations Up To Date Tetanus Booster (TDap): Unknown PED Vaccines UTD: Yes Seasonal Allergies Seasonal Allergies: Yes Past Medical History Surgeries: Yes (breast cystectomy) Appendectomy, Breast, Gallbladder, Hysterectomy, Oophorectomy, Tonsillectomy Respiratory: No Cardiac: Yes High Cholesterol Neurological: No Reproductive Disorders: 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 0.0oz. 70.213141mx; 26.00 BMI Method:Stated General Appearance: WD/WN, mild distress Ears: right ear auricle normal, right ear TM normal, right ear other (Minimal erythema to the canal wall but otherwise unremarkable exam. No pain with movement of the pinna) Nose: normal inspection Mouth/Throat: normal mouth inspection, pharynx normal, dental tenderness, other (Upper and lower dentures. Tenderness to palpation just anterior to the right ear. 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 Pain seems to be coming from the right TMJ. Treatment was discussed accordingly. Departure Impression Primary Impression: Temporal mandibular joint disorder Additional Impression: Otalgia of right ear Disposition: 01 HOME, SELF-CARE Condition: Improved Departure-Patient Inst. Decision time for Depature: 11:46 Referrals: SAÚL ISLAS DDS NO,LOCAL PHYSICIAN (PCP) Primary Care Physician Patient Instructions: TMJ Exercises, Temporomandibular Joint (TMJ) Disorders Add. Discharge Instructions: Based on your examination today your pain seems to be originating from TMJ disorder. For primary pain control use ibuprofen up to 600 mg every 6 hours and/or Tylenol (acetaminophen) up to 1000 mg every 6 hours as needed. Try gabapentin as prescribed for backup pain control. This medication may cause drowsiness so be careful when you use it until you know how it affects you. Do not drive, operate machinery, or make important decisions while taking gabapentin. Follow-up with your dentist or denture supplier to evaluate the fit of your dentures. Improper denture fit may contribute to this problem. Referral to an oral surgeon is recommended. Dr. Islas's contact information is listed below. Call with questions or concerns. Return to care if you have worsening symptoms despite following these measures. All discharge instructions reviewed with patient and/or family. Voiced und erstanding. Scripts Gabapentin (Neurontin) 300 Mg Capsule 300 MG PO TID PRN for PAIN-BREAKTHROUGH, #20 CAP Prov: MEREDITH CAMACHO MD 04/08/20 MEREDITH CAMACHO MD Apr 08, 2020 11:49
== END 2020-04-08 12:02 | disposition home or self-care (01) ==
LOC: EDUNIT# 10:26 → ER 10:28
DX: M26.601 Right temporomandibular joint disorder, unspecified (principal); H92.01 Otalgia, right ear; E78.00 Pure hypercholesterolemia, unspecified; Z77.22 Contact with and (suspected) exposure to environmental tobacco smoke (acute) (chronic); Z88.5 Allergy status to narcotic agent; Z88.8 Allergy status to other drugs, medicaments and biological substances; Z79.82 Long term (current) use of aspirin; Z79.52 Long term (current) use of systemic steroids
CPT/HCPCS: 99282